=== PATIENT | male | born 1960 | race African-American/Black ===

== ENCOUNTER 2017-02-10 05:12 | Emergency (ER) | payer OTHER ==
[~2017-02-10] VITALS: Ht 185.4 cm; Wt 90.7 kg
[2017-02-10] MEDS ORDERED: metroNIDAZOLE 500mg 100 ML IV STA (05:31)
[2017-02-10] MEDS ORDERED: Cefepime HCl 1 GM in NS 55 ML IV STA (05:31)
[2017-02-10] MEDS ORDERED: Vancomycin 1.5gm/D5W 300ml 325 ML IVPB ONE (05:45)
[2017-02-10] MEDS ORDERED: Ketorolac 30mg Inj IV ONE (05:45)
[2017-02-10 05:50] VITALS: BP 142/92
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
[2017-02-10 06:11] LABS: APPEARANCE,URINE CLEAR; KETONES,URINE NEGATIVE (NEGATIVE); LEUKOCYTE ESTERASE ,URINE NEGATIVE (NEGATIVE); MEAN CORPUSCULAR HEMOGLOBIN 30.1 PG (27.0-31.0); MEAN CORPUSCULAR HGB CONC 32.8 G/DL (32.0-36.0); MEAN CORPUSCULAR VOLUME 92 FL (80-99); MEAN PLATELET VOLUME 7.3 FL (6.5-10.1); NITRITE,URINE NEGATIVE (NEGATIVE); PH,URINE 5 (4.5-8.0); PLATELET COUNT 272 K/UL (150-450); PROTEIN,URINE 2+ (NEGATIVE); RED BLOOD COUNT 4.49 M/UL (4.70-6.10); RED CELL DISTRIBUTION WIDTH 11.9 % (11.6-14.8); UROBILINOGEN,URINE NORMAL MG/DL (0.0-1.0); WHITE BLOOD COUNT 21.3 K/UL (4.8-10.8)
[2017-02-10] MEDS ORDERED: Cefepime 1gm vial ONE (06:11)
[2017-02-10 06:26] LABS: BACTERIA,URINE FEW /HPF; RBC,URINE 0-2 /HPF (0 - 0); WBC,URINE 0 /HPF (0 - 0)
[2017-02-10 06:41] LABS: ALANINE AMINOTRANSFERASE 26 U/L (3-41); ALBUMIN/GLOBULIN RATIO 0.9 (1.0-2.7); ANION GAP 13 (5-15); ASPARTATE AMINO TRANSFERASE 19 U/L (5-40); CALCIUM 9.4 mg/dL (8.6-10.2); CARBON DIOXIDE 24 mEQ/L (20-30); CHLORIDE 97 mEQ/L (98-107); CREATININE 0.9 mg/dL (0.7-1.2); GLOMERULAR FILTRATION RATE > 60 mL/min (>60); HEMOLYSIS 1; POTASSIUM 3.3 mEQ/L (3.4-4.9); SODIUM 134 mEQ/L (135-145); TOTAL PROTEIN 7.3 g/dL (6.6-8.7)
[2017-02-10 06:43] LABS: TROPONIN I < 0.30 ng/mL (<=0.30)
[2017-02-10] MEDS ORDERED: XANAX0.25 MG ORAL (07:23)
[2017-02-10] MEDS ORDERED: ASPIR 8181 MG ORAL (07:23)
[2017-02-10] MEDS ORDERED: IBUPROFEN600 MG ORAL (07:23)
[2017-02-10] MEDS ORDERED: ACETAMINOPHEN-1 EAC2 ORAL (07:23)
[2017-02-10] MEDS ORDERED: ALBUTEROL SULF8.5 GM INH (07:23)
[2017-02-10 07:52] VITALS: BP 158/89
--- NOTE | 2017-02-10 08:11 | Diagnostic Imaging Report ---
Indication: Chest pain Technique: Single portable AP view of the chest. Findings: Comparison: None. Mild dextroscoliosis lower thoracic spine. Linear densities are present in the left midlung, both lung bases. Symmetric 1 cm nodular density overlies each lower lung zone. Lungs are normally, relatively symmetrically inflated. Aortic arch minimally calcified. Remaining bones and extra pulmonary soft tissues, remainder of the cardiomediastinal silhouette, pulmonary vasculature, and pleural surfaces are unremarkable. IMPRESSION: Bilateral pulmonary subsegmental atelectasis Symmetric lower lung zone nodular densities most likely represent nipple shadows. Repeat imaging with nipple markers recommended to ascertain. Minimal aortosclerosis Mild scoliosis.
[2017-02-10 09:21] LABS: BAND NEUTROPHILS % (MANUAL) 0 % (0-8); BASOPHILS % (MANUAL) 0 % (0-2); EOSINOPHILS % (MANUAL) 0 % (0-3); LYMPHOCYTES % (MANUAL) 4 % (20-45); NEUTROPHILS % (MANUAL) 90 % (45-75); PLATELET ESTIMATE ADEQUATE; PLATELET MORPHOLOGY NORMAL; TOTAL CELLS COUNTED 100
[2017-02-10 09:27] VITALS: BP 148/86
[2017-02-10 09:42] VITALS: BP 148/86
--- NOTE | 2017-02-11 20:07 | Cardiology Report ---
APPROVED REPORT EKG Measurement Heart [id number] Normal sinus rhythm Possible Left atrial enlargement Borderline ECG
== END 2017-02-10 10:14 | disposition short-term general hospital (02) ==
LOC: EDBD 05:12 → EMR 05:58
DX: L03.115 Cellulitis of right lower limb (principal); F17.200 Nicotine dependence, unspecified, uncomplicated; Z86.59 Personal history of other mental and behavioral disorders; J44.9 Chronic obstructive pulmonary disease, unspecified
CPT/HCPCS: 36415; 71010; 80053; 81003; 82550; 83880; 84484; 85007; 85025; 85610; 85730; 87040; 93005; 96374; 96375; 99285; J0692; J1885; J3370